=== PATIENT | female | born 1995 | race Caucasian/White ===

== ENCOUNTER 2017-06-25 13:29 | Emergency (ER) | payer MEDICAID, OTHER ==
[~2017-06-25] VITALS: Ht 165.1 cm; Wt 45.6 kg
[~2017-06-25 13:29] MED LIST: CEPH250S PO; Z.0.NO CURRENT MEDS
[2017-06-25 13:44] VITALS: BP 111/67; PULSE 88; RESP 16; TEMP 98.7; O2SAT 100
--- NOTE | 2017-06-25 14:19 | PD ---
HPI Chief Complaint: Chemical Supervisor Problem/Complaint Time Seen by Provider: 14:17 Travel History International Travel<30 days: No Contact w/Intl Traveler<30days: No Traveled to known affect area: No History of Present Illness HPI 21-year-old female with no significant past medical issues, presents to the ER with 1 week history of greenish vaginal discharge with brownish spotting. She reports pelvic discomfort. She denies any fevers, vomiting, or any other symptoms. She states that she is not sure whether she may have left a tampon in. She states that her last menses was around mid May. Modifying Factors: None Associated Signs & Symptoms: Vaginal discharge, possible foreign body Risk Factors: None PFSH Past Medical History ?: Not LMP: 06/06/17 Social History Alcohol Use: No Tobacco Use: No Allergies-Medications (Allergen,Severity, Reaction): Coded Allergies: No Known Allergies (Verified , 06/25/17) Reported Meds & Prescriptions Reported Meds & Active Scripts Active No Active Prescriptions or Reported Medications Review of Systems Except as stated in HPI: all other systems reviewed are Neg Physical Exam Narrative GENERAL: Well-developed young white female patient currently in no acute distress. Awake and oriented 3. SKIN: Focused skin assessment warm/dry. HEAD: Atraumatic. Normocephalic. EYES: Pupils equal and round. No scleral icterus. No injection or drainage. ENT: No nasal bleeding or discharge. Mucous membranes pink and moist. NECK: Trachea midline. No JVD. CARDIOVASCULAR: Regular rate and rhythm. No murmur appreciated. RESPIRATORY: No accessory muscle use. Clear to auscultation. Breath sounds equal bilaterally. GASTROINTESTINAL: Abdomen soft, non-tender, nondistended. Hepatic and splenic margins not palpable. GENITOURINARY: Normal external genitalia without lesions or erythema. Vaginal vault without blood but with copious greenish drainage. Cervical os was closed , greenish drainage. No cervical motion tenderness. Uterus nontender and nonenlarged. Bilateral adnexa nontender without masses. MUSCULOSKELETAL: No obvious deformities. No clubbing. No cyanosis. No edema. NEUROLOGICAL: Awake and alert. No obvious cranial nerve deficits. Motor grossly within normal limits. Normal speech. PSYCHIATRIC: Appropriate mood and affect; insight and judgment normal. Data Data Last Documented VS Vital Signs Date Time Temp Pulse Resp B/P Pulse Ox O2 Delivery O2 Flow Rate FiO2 06/25/17 13:44 98.7 88 16 111/67 100 Orders Gc And Chlamydia Pcr (06/25/17 14:17) Wet Prep Profile (06/25/17 14:17) Urinalysis - C+S If Indicated (06/25/17 14:17) Ed Urine Pregnancytest Poc (06/25/17 14:17) Azithromycin Powd Pack (Zithromax Powd P (06/25/17 15:15) Ceftriaxone Inj (Rocephin Inj) (06/25/17 15:15) Lidocaine 1% Inj (50 Ml) (Xylocaine 1% I (06/25/17 15:15) Metronidazole (Flagyl) (06/25/17 15:15) Labs Laboratory Tests Test 06/25/17 06/25/17 14:28 15:06 Urine Color YELLOW Urine Turbidity CLEAR Urine pH 5.0 Urine Specific [place] 1.022 Urine Protein NEG mg/dL Urine Glucose (UA) NEG mg/dL Urine Ketones NEG mg/dL Urine Occult Blood NEG Urine Nitrite NEG Urine Bilirubin NEG Urine Leukocyte Esterase NEG Urine RBC 0-3 /hpf Urine WBC 3-5 /hpf Urine Squamous Epithelial 6-8 /hpf Cells Urine Mucus MOD /lpf Microscopic Urinalysis Comment CULT NOT INDICATED Clue Cells (Wet Prep) PRESENT Vaginal Trichomonas (Wet Prep) NONE SEEN Vaginal Yeast (Wet Prep) NONE SEEN MDM Medical Decision Making Medical Screen Exam Complete: Yes Emergency Medical Condition: Yes Medical Record Reviewed: Yes Differential Diagnosis Vaginal dischargeforeign body versus vaginitis versus cervicitis Narrative Course Pelvic exam with notable discharge concerning for RELATIONS MGR infection. Cultures were sent. Patient is an are clear treated with antibiotics. I do not see any signs of foreign bodies. She is not . At this point, my plan would be to release her with follow-up to [employer]FOR[employer]NAG[employer] as needed. Return for any worsening in symptoms. Safe sex until cultures come back in a few days. The plan was discussed with her and she states understanding. Diagnosis Primary Impression: Vaginal discharge Med/Other Pt SpecificInfo: Prescription(s) given Scripts Metronidazole (Flagyl)500 Mg Cmk430 Mg PO BID 7 Days Ref 0 Prov:Lizandro Yang MD 06/25/17 Disposition: 01 DISCHARGE HOME Condition: Stable Lizandro Yang MD Jun 25, 2017 14:19
[2017-06-25 14:46] LABS: BLOOD, URINE NEG (NEG); GLUCOSE,URINE NEG (NEG); KETONE, URINE NEG (NEG); NITRITE,URINE NEG (NEG)
[2017-06-25 14:50] LABS: URINE COLOR YELLOW (YELLW/STRAW)
[2017-06-25 14:51] LABS: MUCUS URINE MOD /lpf (OCC); RBC, URINE 0-3 /hpf (0-3)
[2017-06-25 14:52] LABS: COMMENT (UR) CULT NOT INDICATED; CULTURE IF INDICATED CULT NOT INDICATED
[2017-06-25] MEDS ORDERED: cefTRIAXone 250 MG VIAL IM ONE (15:15)
[2017-06-25] MEDS ORDERED: metroNIDAZOLE 500 MG TAB PO ONE (15:15)
[2017-06-25] MEDS ORDERED: LIDOCAINE HCL 1% 50 ML VIAL IM ONE (15:15)
[2017-06-25] MEDS ORDERED: AZITHROMYCIN PWD FOR SUSP 1 GM PACKET PO ONE (15:15)
[2017-06-25] MEDS ORDERED: METR-1 PO (15:22)
[2017-06-25 15:58] VITALS: BP 115/74
[2017-06-25 19:52] LABS: CHLAMYDIA PCR NOT DETECTED (NOT DETECT); NEISSERIA PCR NOT DETECTED (NOT DETECT)
[2017-06-26] MEDS ORDERED: ZOFR4TAB3 SL (11:43)
== END 2017-06-25 16:00 | disposition home or self-care (01) ==
LOC: PHED 13:29
DX: N89.8 Other specified noninflammatory disorders of vagina (principal)
CPT/HCPCS: 81001; 84703; 87210; 87491; 87591; 96372; 99284; J0696

== ENCOUNTER 2017-06-26 09:28 | Emergency (ER) | payer MEDICAID, OTHER ==
[~2017-06-26] VITALS: Ht 167.6 cm; Wt 47.0 kg
[~2017-06-26 09:28] MED LIST changes: -CEPH250S PO; +METR-1 PO; -Z.0.NO CURRENT MEDS
[2017-06-26 09:45] VITALS: BP 115/66; PULSE 103; RESP 16; TEMP 98.3; O2SAT 100
--- NOTE | 2017-06-26 10:14 | PD ---
HPI Chief Complaint: GI Complaint Time Seen by Provider: 09:58 Travel History International Travel<30 days: No Contact w/Intl Traveler<30days: No Traveled to known affect area: No History of Present Illness HPI The patient is a 21-year-old female who presents to the emergency department for nausea, vomiting, and epigastric pain. The patient was seen in the emergency department yesterday for vaginal discharge and was diagnosed with bacterial vaginosis. The patient was discharged home on Flagyl, however, did not have time to pickle processor the prescription. The patient states she fell asleep and when she awakened she had some nausea. The patient subsequent had 3 episodes of vomiting and has mild epigastric pain that radiates up into the mid chest area. She denies any lower abdominal pain, dysuria, frequency, or urgency. The patient denies . The patient had a negative test performed yesterday. She denies any previous abdominal surgeries. She denies any history of gallstones, biliary colic, alcohol use, or pancreatitis. Symptoms are moderate without any alleviating or exacerbating factors. [facility] Past Medical History Medical History: Denies Significant Hx ?: Not Past Surgical History Surgical History: No Previous Surgery Social History Alcohol Use: No Tobacco Use: Yes (1/2PPD) Substance Use: No Allergies-Medications (Allergen,Severity, Reaction): Coded Allergies: No Known Allergies (Verified , 06/25/17) Reported Meds & Prescriptions Reported Meds & Active Scripts Active Flagyl (Metronidazole) 500 Mg Tab 500 Mg PO BID 7 Days Review of Systems Except as stated in HPI: all other systems reviewed are Neg General / Constitutional: No: Fever Cardiovascular: Positive: Chest Pain or Discomfort (substernal chest pain rating from the epigastrium) Respiratory: No: Shortness of Breath Gastrointestinal: Positive: Nausea, Vomiting, Abdominal Pain, No: Constipation , Changes in Bowel Habits Genitourinary: Positive: Discharge, No: Dysuria Skin: No Rash Physical Exam Narrative GENERAL: Awake, alert, pleasant 21-year-old female who appears her stated age and is in no acute respiratory distress. SKIN: Focused skin assessment warm/dry. HEAD: Atraumatic. Normocephalic. EYES: Pupils equal and round. No scleral icterus. No injection or drainage. ENT: No nasal bleeding or discharge. Mucous membranes pink and moist. NECK: Trachea midline. No JVD. CARDIOVASCULAR: Regular rate and rhythm. No murmur appreciated. Heart rate in the 90s. RESPIRATORY: No accessory muscle use. Clear to auscultation. Breath sounds equal bilaterally. GASTROINTESTINAL: Abdomen soft, mild epigastric tenderness. Negative Aguilar's. Negative McBurney's. MUSCULOSKELETAL: No obvious deformities. No clubbing. No cyanosis. No edema. NEUROLOGICAL: Awake and alert. No obvious cranial nerve deficits. Motor grossly within normal limits. Normal speech. PSYCHIATRIC: Appropriate mood and affect; insight and judgment normal. Data Data Last Documented VS Vital Signs Date Time Temp Pulse Resp B/P Pulse Ox O2 Delivery O2 Flow Rate FiO2 06/26/17 10:32 99 Room Air 06/26/17 09:45 98.3 103 16 115/66 Orders Complete Blood Count With Diff (06/26/17 10:15) Comprehensive Metabolic Panel (06/26/17 10:15) Lipase (06/26/17 10:15) Iv Access Insert/Monitor (06/26/17 10:15) Ecg Monitoring (06/26/17 10:15) Oximetry (06/26/17 10:15) Ondansetron Inj (Zofran Inj) (06/26/17 10:15) Sodium Chlor 0.9% 1000 Ml Inj (Ns 1000 M (06/26/17 10:15) Sodium Chloride 0.9% Flush (Ns Flush) (06/26/17 10:15) Famotidine Inj (Pepcid Inj) (06/26/17 10:15) Labs Laboratory Tests Test 06/26/17 10:30 White Blood Count 6.7 TH/MM3 Red Blood Count 4.70 MIL/MM3 Hemoglobin 14.0 GM/DL Hematocrit 41.2 % Mean Corpuscular Volume 87.6 FL Mean Corpuscular Hemoglobin 29.9 PG Mean Corpuscular Hemoglobin 34.1 % Concent Red Cell Distribution Width 12.0 % Platelet Count 226 TH/MM3 Mean Platelet Volume 8.8 FL Neutrophils (%) (Auto) 68.7 % Lymphocytes (%) (Auto) 24.4 % Monocytes (%) (Auto) 4.9 % Eosinophils (%) (Auto) 1.4 % Basophils (%) (Auto) 0.6 % Neutrophils # (Auto) 4.7 TH/MM3 Lymphocytes # (Auto) 1.6 TH/MM3 Monocytes # (Auto) 0.3 TH/MM3 Eosinophils # (Auto) 0.1 TH/MM3 Basophils # (Auto) 0.0 TH/MM3 CBC Comment DIFF FINAL Differential Comment Sodium Level 138 MEQ/L Potassium Level 3.9 MEQ/L Chloride Level 105 MEQ/L Carbon Dioxide Level 26.6 MEQ/L Anion Gap 6 MEQ/L Blood Urea Nitrogen 14 MG/DL Creatinine 0.87 MG/DL Estimat Glomerular Filtration 84 ML/MIN Rate Random Glucose 91 MG/DL Calcium Level 8.7 MG/DL Total Bilirubin 0.9 MG/DL Aspartate Amino Transf 30 U/L (AST/SGOT) Alanine Aminotransferase 45 U/L (ALT/SGPT) Alkaline Phosphatase 73 U/L Total Protein 7.5 GM/DL Albumin 4.1 GM/DL Lipase 179 U/L [facility] Medical Decision Making Medical Screen Exam Complete: Yes Emergency Medical Condition: Yes Medical Record Reviewed: Yes Interpretation(s) Laboratory Tests Test 06/26/17 10:30 White Blood Count 6.7 TH/MM3 Red Blood Count 4.70 MIL/MM3 Hemoglobin 14.0 GM/DL Hematocrit 41.2 % Mean Corpuscular Volume 87.6 FL Mean Corpuscular Hemoglobin 29.9 PG Mean Corpuscular Hemoglobin 34.1 % Concent Red Cell Distribution Width 12.0 % Platelet Count 226 TH/MM3 Mean Platelet Volume 8.8 FL Neutrophils (%) (Auto) 68.7 % Lymphocytes (%) (Auto) 24.4 % Monocytes (%) (Auto) 4.9 % Eosinophils (%) (Auto) 1.4 % Basophils (%) (Auto) 0.6 % Neutrophils # (Auto) 4.7 TH/MM3 Lymphocytes # (Auto) 1.6 TH/MM3 Monocytes # (Auto) 0.3 TH/MM3 Eosinophils # (Auto) 0.1 TH/MM3 Basophils # (Auto) 0.0 TH/MM3 CBC Comment DIFF FINAL Differential Comment Sodium Level 138 MEQ/L Potassium Level 3.9 MEQ/L Chloride Level 105 MEQ/L Carbon Dioxide Level 26.6 MEQ/L Anion Gap 6 MEQ/L Blood Urea Nitrogen 14 MG/DL Creatinine 0.87 MG/DL Estimat Glomerular Filtration 84 ML/MIN Rate Random Glucose 91 MG/DL Calcium Level 8.7 MG/DL Total Bilirubin 0.9 MG/DL Aspartate Amino Transf 30 U/L (AST/SGOT) Alanine Aminotransferase 45 U/L (ALT/SGPT) Alkaline Phosphatase 73 U/L Total Protein 7.5 GM/DL Albumin 4.1 GM/DL Lipase 179 U/L Differential Diagnosis Differential diagnosis includes gastritis, pancreatitis, peptic ulcer disease, biliary colic, cholecystitis, Boerhaave syndrome, Eri-Hodgson tear. Narrative Course IV was established, labs are drawn and sent, and the patient was placed on cardiac telemetry monitoring and continuous pulse oximetry monitoring. The patient was administered Zofran, Pepcid, and IV fluids. The patient's vitals are unremarkable except for mildly elevated heart rate, upon reevaluation the heart rate was in the 70s. Labs are unremarkable. White count is normal, ALT is minimally elevated at 45, and lipase is normal. The patient was reevaluated at 11:25 AM. The patient's symptoms had significantly improved. She tolerated a by mouth challenge with Gatorade without difficulty. The patient be discharged home with Zofran as needed. She is advised to have a clear liquid diet and advance as tolerated. Return if symptoms worsen or progress. Diagnosis Primary Impression: Gastritis Qualified Code: K29.00 - Acute gastritis, presence of bleeding unspecified, unspecified gastritis type Additional Impression: Nausea & vomiting Qualified Code: R11.2 - Non-intractable vomiting with nausea, unspecified vomiting type Patient Instructions: General Instructions Additional Instructions: Clear liquid diet and advance as tolerated. Follow-up with your primary physician. Zofran as needed. Work he sees for today. Return if symptoms worsen or progress. Med/Other Pt SpecificInfo: Prescription(s) given Scripts Ondansetron Odt (Zofran Odt)4 Mg Tab4 Mg SL Q6HR PRN (Nausea/Vomiting) #7 TAB Ref 0 Prov:Reji Mack MD 06/26/17 Disposition: 01 DISCHARGE HOME Condition: Stable Reji Mack MD Jun 26, 2017 10:14
[2017-06-26] MEDS ORDERED: SODIUM CHLOR 0.9% 1000 ML INJ 1,000 ML IV SCH (10:15)
[2017-06-26] MEDS ORDERED: SODIUM CHLORIDE 0.9% FLUSH 10 ML FLUSH IV FLUSH PRN (10:15)
[2017-06-26] MEDS ORDERED: FAMOTIDINE 20 MG/2 ML VIAL IV PUSH ONE (10:15)
[2017-06-26] MEDS ORDERED: ONDANSETRON HCL 4 MG/2 ML VIAL IVP ONE (10:15)
[2017-06-26 10:32] VITALS: O2SAT 99
[2017-06-26 10:38] LABS: AUTOMATED NEUTROPHIL # 4.7 TH/MM3 (1.8-7.7); BASOPHIL % 0.6 % (0.0-2.0); EOSINOPHIL # 0.1 TH/MM3 (0-0.4); EOSINOPHIL % 1.4 % (0.0-4.0); HEMATOCRIT 41.2 % (35.0-46.0); HEMO FLAGS DIFF FINAL; LYMPH % 24.4 % (9.0-44.0); LYMPHOCYTE # 1.6 TH/MM3 (1.0-4.8); MEAN CELL VOLUME 87.6 FL (80.0-100.0); MEAN CORPUSCULAR HEMOGLOBIN 29.9 PG (27.0-34.0); MEAN CORPUSCULAR HGB CONC 34.1 % (32.0-36.0); MONO % 4.9 % (0.0-8.0); NEUT % 68.7 % (16.0-70.0); PLATELET COUNT 226 TH/MM3 (150-450); WHITE BLOOD COUNT 6.7 TH/MM3 (4.0-11.0)
[2017-06-26 10:51] LABS: CHLORIDE 105 MEQ/L (98-107); POTASSIUM 3.9 MEQ/L (3.5-5.1); SODIUM (NA) 138 MEQ/L (136-145)
[2017-06-26 10:55] LABS: ANION GAP 6 MEQ/L (5-15); BICARBONATE 26.6 MEQ/L (21.0-32.0); BLOOD UREA NITROGEN 14 MG/DL (7-18)
[2017-06-26 10:58] LABS: ALT (GPT) 45 U/L (9-42); AST (GOT) 30 U/L (16-38); GLOMERULAR FILTRATION RATE 84 ML/MIN (>89)
[2017-06-26 10:59] LABS: TOTAL BILIRUBIN ADULT 0.9 MG/DL (0.2-1.0)
[2017-06-26 11:00] LABS: ALKALINE PHOSPHATASE 73 U/L (45-117)
[2017-06-26] MEDS ORDERED: ZOFR4TAB3 SL (11:43)
[2017-06-26 12:01] VITALS: BP 118/71
== END 2017-06-26 12:05 | disposition home or self-care (01) ==
LOC: PHED 09:28
DX: K29.00 Acute gastritis without bleeding (principal); R11.2 Nausea with vomiting, unspecified; F17.200 Nicotine dependence, unspecified, uncomplicated
CPT/HCPCS: 80053; 83690; 85025; 96361; 96374; 96375; 99284; J2405; J7030